=== PATIENT | female | born 1990 | race Caucasian/White ===

== ENCOUNTER 2016-10-11 16:43 | Emergency (ER) | payer OTHER ==
[~2016-10-11] VITALS: Ht 157.5 cm; Wt 50.0 kg
[2016-10-11 16:45] VITALS: BP 114/64; PULSE 96; RESP 20; TEMP 98.2; O2SAT 99
[2016-10-11] MEDS ORDERED: SODIUM CHLOR 0.9% 1000 ML INJ 1,000 ML IV SCH (18:49)
--- NOTE | 2016-10-11 18:55 | PD ---
HPI Chief Complaint: Abdominal Pain Time Seen by Provider: 18:52 Travel History International Travel<30 days: No Contact w/Intl Traveler<30days: No Traveled to known affect area: No History of Present Illness HPI 26-year-old female presents to the emergency department for evaluation of epigastric abdominal pain, nausea that started this morning. She states she had some slight episodes of pain over the past week, but worsened this morning. Patient states the pain has improved since this morning. She denies vomiting. No diarrhea or constipation. No fevers or chills. No chest pain or shortness breath. She has no chronic medical problems and takes no prescribed medications. Patient does report abnormal greenish vaginal discharge. She denies risk of STDs. She reports 2 sexual partners in the past 6 months. Patient denies reporting she has an implant. Patient denies any other complaints at this time. PFSH Past Medical History ?: Not LMP: 09/26/16 Social History Alcohol Use: Yes (occasionally) Tobacco Use: No Substance Use: No Allergies-Medications (Allergen,Severity, Reaction): Coded Allergies: No Known Allergies (Unverified , 10/11/16) Reported Meds & Prescriptions Reported Meds & Active Scripts Active No Active Prescriptions or Reported Medications Review of Systems Except as stated in HPI: all other systems reviewed are Neg Physical Exam Narrative GENERAL: Well-nourished, well-developed female patient, afebrile. SKIN: Focused skin assessment warm/dry. HEAD: Normocephalic. Atraumatic EYES: No scleral icterus. No injection or drainage. NECK: Supple, trachea midline. No JVD or lymphadenopathy. CARDIOVASCULAR: Regular rate and rhythm without murmurs, gallops, or rubs. RESPIRATORY: Breath sounds equal bilaterally. No accessory muscle use. Lungs sounds are clear to auscultation. GASTROINTESTINAL: Abdomen soft, non-tender, nondistended. MUSCULOSKELETAL: No cyanosis, or edema. BACK: Nontender without obvious deformity. No CVA tenderness. GENITOURINARY: Normal external genitalia without lesions or erythema. Vaginal vault without blood but green drainage noted. Cervical os was closed. No cervical motion tenderness. Uterus nontender and nonenlarged. Bilateral adnexa nontender without masses. Exam was done with RN at bedside. Data Data Last Documented VS Vital Signs Date Time Temp Pulse Resp B/P Pulse Ox O2 Delivery O2 Flow Rate FiO2 7/16/17 18:56 116/66 10/11/16 16:45 98.2 96 20 99 Room Air Orders Complete Blood Count With Diff (10/11/16 18:49) Comprehensive Metabolic Panel (10/11/16 18:49) Lipase (10/11/16 18:49) Urinalysis - C+S If Indicated (10/11/16 18:49) Iv Access Insert/Monitor (10/11/16 18:49) Ecg Monitoring (10/11/16 18:49) Oximetry (10/11/16 18:49) Ondansetron Inj (Zofran Inj) (10/11/16 19:00) Sodium Chlor 0.9% 1000 Ml Inj (Ns 1000 M (10/11/16 18:49) Sodium Chloride 0.9% Flush (Ns Flush) (10/11/16 19:00) Ed Urine Pregnancytest Poc (10/11/16 18:49) Gc And Chlamydia Pcr (10/11/16 18:49) Wet Prep Profile (10/11/16 18:49) Azithromycin Powd Pack (Zithromax Powd P (10/11/16 20:00) Ceftriaxone Inj (Rocephin Inj) (10/11/16 20:00) Lidocaine 1% Inj (50 Ml) (Xylocaine 1% I (10/11/16 20:00) Labs Laboratory Tests Test 10/11/16 10/11/16 10/11/16 19:00 19:06 19:55 Urine Color YELLOW Urine Turbidity HAZY Urine pH 6.0 Urine Specific [place] 1.012 Urine Protein NEG mg/dL Urine Glucose (UA) NEG mg/dL Urine Ketones NEG mg/dL Urine Occult Blood NEG Urine Nitrite NEG Urine Bilirubin NEG Urine Urobilinogen LESS THAN 2.0 MG/DL Urine Leukocyte Esterase LARGE Urine RBC 1 /hpf Urine WBC 1 /hpf Urine Squamous Epithelial 3 /hpf Cells Urine Bacteria RARE /hpf Microscopic Urinalysis Comment CULT NOT INDICATED White Blood Count 11.1 TH/MM3 Red Blood Count 4.15 MIL/MM3 Hemoglobin 12.9 GM/DL Hematocrit 37.6 % Mean Corpuscular Volume 90.6 FL Mean Corpuscular Hemoglobin 31.1 PG Mean Corpuscular Hemoglobin 34.3 % Concent Red Cell Distribution Width 12.4 % Platelet Count 163 TH/MM3 Mean Platelet Volume 8.0 FL Neutrophils (%) (Auto) 59.4 % Lymphocytes (%) (Auto) 31.3 % Monocytes (%) (Auto) 7.6 % Eosinophils (%) (Auto) 1.0 % Basophils (%) (Auto) 0.7 % Neutrophils # (Auto) 6.6 TH/MM3 Lymphocytes # (Auto) 3.5 TH/MM3 Monocytes # (Auto) 0.8 TH/MM3 Eosinophils # (Auto) 0.1 TH/MM3 Basophils # (Auto) 0.1 TH/MM3 CBC Comment DIFF FINAL Differential Comment Sodium Level 138 MEQ/L Potassium Level 4.6 MEQ/L Chloride Level 106 MEQ/L Carbon Dioxide Level 25.3 MEQ/L Anion Gap 7 MEQ/L Blood Urea Nitrogen 8 MG/DL Creatinine 0.69 MG/DL Estimat Glomerular Filtration 105 ML/MIN Rate Random Glucose 79 MG/DL Calcium Level 9.1 MG/DL Total Bilirubin 2.2 MG/DL Aspartate Amino Transf 37 U/L (AST/SGOT) Alanine Aminotransferase 14 U/L (ALT/SGPT) Alkaline Phosphatase 54 U/L Total Protein 7.3 GM/DL Albumin 3.9 GM/DL Lipase 181 U/L Clue Cells (Wet Prep) NONE SEEN Vaginal Trichomonas (Wet Prep) NONE SEEN Vaginal Yeast (Wet Prep) NONE SEEN MDM Medical Decision Making Medical Screen Exam Complete: Yes Emergency Medical Condition: Yes Medical Record Reviewed: Yes Differential Diagnosis Gastroenteritis versus pancreatitis versus UTI versus cervicitis Narrative Course 26-year-old female presents to the emergency department for evaluation of abdominal pain, abnormal vaginal discharge, nausea. Patient appears well on exam. CBC, CMP, lipase, UA, urine test are ordered and pending. Patient gives verbal consent for pelvic exam. Wet prep and swab for GC and chlamydia will be sent to lab. CBC shows leukocytosis of 11.1, otherwise unremarkable. CMP shows elevated bilirubin at 2.2, otherwise unremarkable. Lipase is 181. UA shows large leukocyte esterase, 1 WBC. UPT is negative. Wet prep is negative for clue cells, Trichomonas, yeast. Pelvic exam reveals large amounts of green vaginal discharge. The patient will be treated for chlamydia and gonorrhea with Rocephin 250 mg IM, azithromycin 1 g by mouth. Patient is instructed to have sexual partners follow-up for testing/treatment for STD. She is to follow primary care physician. She is return for any acute worsening of symptoms. Patient verbalizes agreement and understanding. The patient was discharged in stable condition with instructions, including return instructions and follow up instructions. Diagnosis Primary Impression: Vaginal discharge Referrals: Primary Care Physician call for appointment Patient Instructions: General Instructions, Vaginal Discharge (ED) Additional Instructions: Have sexual partner tested/treated for possible STD. Follow up with your primary care provider. Return to the emergency department for any acute, worsening of symptoms. Med/Other Pt SpecificInfo: No Change to Meds Scripts No Active Prescriptions or Reported Meds Disposition: 01 DISCHARGE HOME Condition: Stable AbelardoSyl Oct 11, 2016 18:55
[2016-10-11 18:56] VITALS: BP 116/66
[2016-10-11] MEDS ORDERED: SODIUM CHLORIDE 0.9% FLUSH 10 ML FLUSH IV FLUSH PRN (19:00)
[2016-10-11] MEDS ORDERED: ONDANSETRON HCL 4 MG/2 ML VIAL IVP ONE (19:00)
[2016-10-11 19:26] LABS: AUTOMATED NEUTROPHIL # 6.6 TH/MM3 (1.8-7.7); BASOPHIL # 0.1 TH/MM3 (0-0.2); BASOPHIL % 0.7 % (0.0-2.0); EOSINOPHIL # 0.1 TH/MM3 (0-0.4); HEMATOCRIT 37.6 % (35.0-46.0); HEMO FLAGS DIFF FINAL; LYMPH % 31.3 % (9.0-44.0); LYMPHOCYTE # 3.5 TH/MM3 (1.0-4.8); MEAN CELL VOLUME 90.6 FL (80.0-100.0); MEAN CORPUSCULAR HEMOGLOBIN 31.1 PG (27.0-34.0); MEAN CORPUSCULAR HGB CONC 34.3 % (32.0-36.0); MONO % 7.6 % (0.0-8.0); NEUT % 59.4 % (16.0-70.0); PLATELET COUNT 163 TH/MM3 (150-450); RED BLOOD COUNT 4.15 MIL/MM3 (4.00-5.30); RED CELL DISTRIBUTION WIDTH 12.4 % (11.6-17.2); WHITE BLOOD COUNT 11.1 TH/MM3 (4.0-11.0)
[2016-10-11 19:35] LABS: BACTERIA, URINE RARE /hpf; BLOOD, URINE NEG (NEG); COMMENT (UR) CULT NOT INDICATED; CULTURE IF INDICATED CULT NOT INDICATED; GLUCOSE,URINE NEG (NEG); KETONE, URINE NEG (NEG); NITRITE,URINE NEG (NEG); SQUAMOUS EPITHELIAL CELL URINE 3 /hpf (0-5); URINE COLOR YELLOW (YELLW/STRAW)
[2016-10-11 19:39] LABS: ALT (GPT) 14 U/L (10-53)
[2016-10-11 19:41] LABS: ALKALINE PHOSPHATASE 54 U/L (45-117); TOTAL BILIRUBIN ADULT 2.2 MG/DL (0.2-1.0)
[2016-10-11 19:43] LABS: ANION GAP 7 MEQ/L (5-15); AST (GOT) 37 U/L (15-37); BICARBONATE 25.3 MEQ/L (21.0-32.0); BLOOD UREA NITROGEN 8 MG/DL (7-18); CHLORIDE 106 MEQ/L (98-107); GLOMERULAR FILTRATION RATE 105 ML/MIN (>89); SODIUM (NA) 138 MEQ/L (136-145)
[2016-10-11 19:44] LABS: POTASSIUM 4.6 MEQ/L (3.5-5.1)
[2016-10-11] MEDS ORDERED: AZITHROMYCIN PWD FOR SUSP 1 GM PACKET PO ONE (20:00)
[2016-10-11] MEDS ORDERED: cefTRIAXone 250 MG VIAL IM ONE (20:00)
[2016-10-11] MEDS ORDERED: LIDOCAINE HCL 1% 50 ML VIAL IM ONE (20:00)
[2016-10-11 20:57] VITALS: BP 171/65
[2016-10-11 23:05] LABS: CHLAMYDIA PCR NOT DETECTED (NOT DETECT); NEISSERIA PCR NOT DETECTED (NOT DETECT)
== END 2016-10-11 21:17 | disposition home or self-care (01) ==
LOC: NEPC 16:43
DX: N89.8 Other specified noninflammatory disorders of vagina (principal); R11.0 Nausea; D72.829 Elevated white blood cell count, unspecified
CPT/HCPCS: 80053; 81001; 83690; 84703; 85025; 87210; 87491; 87591; 96361; 96372; 96374; 99284; J0696; J2405; J7030